=== PATIENT | female | born 1990 | race African-American/Black ===

== ENCOUNTER 2019-12-12 04:47 | Inpatient (IN) | payer MEDICAID, OTHER, SELFPAY ==
[2019-12-12] MEDS ORDERED: METHYLERGONOVINE 0.2MG/ML AMP IM PRN ×2 (06:26→10:07)
[2019-12-12] MEDS ORDERED: CARBOPROST TROME 250 MCG/ML IM PRN ×2 (06:26→10:07)
[2019-12-12] MEDS ORDERED: BUTORPHANOL 1 MG/ML INJ ONE (06:26)
[2019-12-12] MEDS ORDERED: BUTORPHANOL 1 MG/ML INJ IV PRN (06:26)
[2019-12-12] MEDS ORDERED: PROMETHAZINE INJ 25 MG/ML AMP ONE (06:26)
[2019-12-12] MEDS ORDERED: PROMETHAZINE INJ 25 MG/ML AMP IV PRN (06:26)
[2019-12-12] MEDS ORDERED: Ringers Lactate 1,000 ML IV PRN (06:26)
[2019-12-12] MEDS ORDERED: METHYLERGONOVINE 0.2MG/ML AMP IM ONE (06:27)
[2019-12-12] MEDS ORDERED: OXYTOCIN/LR 20 UNIT/1,000 ML BAG IV ONE (06:27)
[2019-12-12] MEDS ORDERED: Ringers Lactate 1,000 ML IV SCH (07:00)
[2019-12-12] MEDS ORDERED: OXYTOCIN/LR 20 UNIT/1,000 ML BAG IV SCH ×2 (07:00→11:00)
[2019-12-12 07:02] LABS: Absolute Lymphocytes (CBC) 1.4 K/uL (0.7-4.9); Basophils % 0.2 % (0-1.3); Hematocrit 33.3 % (36.0-45.0); Lymphocytes % 14.9 % (15.3-44.8); MPV 10.8 fL (7.6-11.3); RBC Red Blood Cell Count 4.01 M/uL (3.86-4.86)
[2019-12-12] MEDS ORDERED: ROPIVACAINE HCL 100 ML IV PRN (07:08)
[2019-12-12] MEDS ORDERED: FENTANYL CITR 100 MCG/2 ML IV ONE (07:08)
[2019-12-12] MEDS ORDERED: ROPIVACAINE HCL 0.2% 20ML AMP IV ONE (08:00)
--- NOTE | 2019-12-12 08:56 | PREOPHP ---
Date of Admission: 12/12/2019 History Of Present Illness: Ms. Nation is a 29-year-old , 4, para 3003, followed through by a physician in [place]. She presents to Labor and Delivery complaining of contractions, noted to be 4 cm dilated initially with bulging membranes, over the next hour progressed to 6 cm. She is admitted for labor and delivery. Past Medical History: Includes 4 prior vaginal deliveries without complications. No other significant hospitalizations, accidents, illnesses, injuries. Medications: She is on no medications other than vitamins. Allergies: NO KNOWN ALLERGIES. Family History: Noncontributory. Review of Systems: She reports no recent cough, cold, fever, or chills. No recent nausea or vomiting. No breast knots or lumps. No bowel or bladder issues. Physical Examination: General: Reveals a black female in mild discomfort. Neck: Supple without adenopathy or thyromegaly. Lungs: Clear. Cardiac: Regular rate and rhythm without murmurs. Breasts: Not examined. Abdomen: Estimated weight of approximately 7+ pounds. Pelvic: Cervix noted to be 6+ cm dilated, vertex presentation. Extremities: No cyanosis, clubbing, or edema. Impression: Term , active labor. Plan: The patient will be admitted for delivery. YEIMI/TASHIA Voice ID: [id number] [email or web address]
[2019-12-12] MEDS ORDERED: LIDOCAINE 1% 20 ML MDV ONE (09:18)
[2019-12-12 09:30] LABS: Urine Appearance TURBID; Urine Bilirubin NEGATIVE (NEG); Urine Blood 2+ (NEG); Urine Color YELLOW; Urine Glucose NEGATIVE (NEG); Urine Protein 2+ (NEG); Urine Urobilinogen 0.2 mg/dL (0.2-1.0); Urine pH 6.5 (5.0-7.0)
[2019-12-12 10:02] LABS: Urine Bacteria >50 /HPF (<20); Urine Culture Reflex Order REFLEXED
--- NOTE | 2019-12-12 10:06 | P.BOP ---
Preoperative diagnosis: Term IUP, active labor Postoperative diagnosis: SCVD viable female Primary procedure: SCVD Secondary procedure: Repair perineal laceration Anesthesia: epidural Complications: None Transferred to: Other (272) Condition: Good
[2019-12-12] MEDS ORDERED: ONDANSETRON 4 MG (ODT) TAB PO PRN (10:07)
[2019-12-12] MEDS ORDERED: ACETAMINOPHEN 500 MG TAB PO PRN (10:07)
[2019-12-12] MEDS ORDERED: METHYLERGONOVINE 0.2 MG TAB PO PRN (10:07)
[2019-12-12] MEDS: IBUPROFEN 600 MG TAB PO PRN (16:10)
[2019-12-12 21:51] VITALS: BMI 39.3
[2019-12-13 08:29] VITALS: BP 121/53; TEMP 97.3
[2019-12-13] MEDS ORDERED: MEASLES,MUMPS,RUBELLA VAC 0.5ML SQVAC ONE (08:39)
[2019-12-13] MEDS ORDERED: NITROFURAN MACRO 100 MG CAP PO ONE (09:08)
[2019-12-13] MEDS ORDERED: Tdap (Diph,Pertuss(Acell),Tet Vac) 0.5 ML SYR IMVAC ONE (09:56)
--- NOTE | 2019-12-13 10:39 | DN ---
Surgeon: Augie Wright MD Ms. Nation is a 29-year-old black female 4, para 3-0-0-3, followed by a physician in [place], presents to Labor and Delivery at 39 weeks' gestation with complaints of contractions. She had a first stage of labor of 7 hours and 15 minutes, second stage of labor at 31 minutes. She deliv ered by spontaneous controlled vaginal delivery a 6-pound 6-ounce female infant, was 9 and 9. After delayed cord clamping, the was placed on mother's upper abdomen. Cord blood was obtaine d. Placenta was spontaneously expelled and appeared to be intact. Intrauterine examination revealed no retained placental fragment. She delivered with epidural anesthesia after receiving 1 mg Stadol IV and 1 dose of Phenergan 12.5 mg IV for analgesia. Quantitative blood loss was 70 mL. She suffere d a midline second-degree perineal laceration at the time of delivery, which was repaired utilizing 3 -0 Vicryl suture in the usual fashion. The patient tolerated all procedures well. YEIMI/TASHIA Voice ID: [id number] Report ID: [id number]
[2019-12-13] MEDS: IBUPROFEN 600 MG TAB PO PRN (10:40)
--- NOTE | 2019-12-13 19:23 | DS ---
Date of Discharge: 12/13/2019 Final Hospital Discharge Diagnosis: 38 plus week delivered. Complications: None. Procedures: Artificial rupture of membranes, placement of epidural catheter, spontaneous controlled vaginal delivery of a viable female infant, repair of second-degree perineal laceration. Hospital Course: The patient is a 29-year-old female, 4, para 3-0-0-3, foll owed by a physician in [place], who presents to our labor and delivery unit in labor. She had an une ventful labor and delivery. First stage of labor approximately 7 hours and 15 minutes, second stage of labor 31 minutes. She delivered by spontaneous controlled vaginal delivery of a 6-pound 6-ounce f emale , 9 and 9 with epidural anesthesia. She was dismissed on the first day, ambulatory, on a select diet with routine post vaginal delivery activity restrictions. Lab work inc luded an admission hemoglobin and hematocrit of 10.8 and 33.3, dismissal of 31.5 with likely iron def iciency anemia. She had a urinalysis, which was suspicious for possible bladder infection, but she h ad no symptoms. RPR is pending. She is O-positive blood type. Preliminary urine count showed possi ble bladder infection. She will be dismissed with antibiotic for potential coverage to continue taki ng her vitamins with the usual post vaginal delivery activity restrictions. YEIMI/TASHIA Voice ID: [id number] Report ID: [id number]
[2019-12-13 22:42] LABS: RPR (Rapid Plasma Reagin) NON-REACT (NON-REACT)
[2019-12-15 19:00] LABS: HBsAG Nonreactive (Nonreactive)
== END 2019-12-13 13:30 | disposition home or self-care (01) | DRG 805 ==
LOC: L&D 04:47 → 2ND-WC 06:08
PROVIDERS: ADMIT Specialist; ATTEND Specialist
PROC: 10E0XZZ Delivery of Products of Conception, External Approach (ICD-10-PCS; principal; 2019-12-12)
PROC: 0KQM0ZZ Repair Perineum Muscle, Open Approach (ICD-10-PCS; 2019-12-12)
PROC: 10907ZC Drainage of Amniotic Fluid, Therapeutic from Products of Conception, Via Natural or Artificial Opening (ICD-10-PCS; 2019-12-12)
DX: O70.1 Second degree perineal laceration during delivery (principal); O75.3 Other infection during labor; Z37.0 Single live birth; Z3A.39 39 weeks gestation of pregnancy; Z23 Encounter for immunization; O99.02 Anemia complicating childbirth; D50.9 Iron deficiency anemia, unspecified; N30.90 Cystitis, unspecified without hematuria
CPT/HCPCS: 36415; 81001; 85014; 85025; 86592; 86901; 87077; 87086; 87088; 87186; 87340; 90471; 90707; 90715; J0595; J2210; J2550; J2590; J2795; J3010; J7120

== ENCOUNTER 2020-07-03 18:34 | Inpatient (IN) | payer MEDICAID ==
--- OUTSIDE RECORDS SUMMARY | 2020-07-03 18:36 | XMS REPORT | Continuity of Care Document ---
:1990 Author Organization [facility] t Address [address] [place] [address] Care Team Providers Name Role Phone Unavailable Unavailable Unavailable Problems This patient has no known problems. Allergies, Adverse Reactions, Alerts This patient has no known allergies or adverse reactions. Medications This patient has no known medications. Procedures This patient has no known procedures. Encounters Start End Encounter Admission Attending Care Care Encounter Source Date/Time Date/Time Type Type Clinicians Facility Department ID 2018-11-28 2018-11-28 Emergency E [id number] 17:24:00 17:24:00 Results This patient has no known results.
[2020-07-03 19:34] LABS: Absolute Lymphocytes (CBC) 1.8 K/uL (0.7-4.9); Basophils % 0.5 % (0-1.3); Hematocrit 36.5 % (36.0-45.0); Lymphocytes % 10.9 % (15.3-44.8); MPV 11.1 fL (7.6-11.3); RBC Red Blood Cell Count 4.52 M/uL (3.86-4.86)
[2020-07-03] MEDS ORDERED: ONDANSETRON 4 MG/2 ML VIAL ONE (19:36)
[2020-07-03] MEDS ORDERED: NA CHLORIDE 0.9% 1,000 ML ONE (19:36)
[2020-07-03 19:37] LABS: Urine Bacteria 20-50 /HPF (<20); Urine Mucus 2+ /HPF (NONE SEEN)
[2020-07-03 19:37] LABS: Urine Blood 2+ (NEG); Urine Glucose NEGATIVE (NEG); Urine Protein 3+ (NEG)
[2020-07-03] MEDS ORDERED: MORPHINE 4 MG/ML SYR ONE (19:38)
[2020-07-03 19:50] LABS: Albumin 2.5 g/dL (3.4-5.0); Bilirubin Direct 0.2 mg/dL (0-0.2); Bilirubin Total 0.9 mg/dL (0.2-1.0); Potassium 3.9 mmol/L (3.5-5.1)
[2020-07-03 19:58] LABS: Blood Morphology Comment NOT SEEN (NOT SEEN); Platelet Estimate ADEQ; White Blood Cell Scan OK (OK)
[2020-07-03 19:59] LABS: Anisocytosis 1+; Poikilocytosis 1+
--- NOTE | 2020-07-03 19:59 | RAD REPORT ---
EXAM DESCRIPTION: CTAbdomen Pelvis W Contrast - 07/03/2020 7:51 pm CLINICAL HISTORY: Abdominal pain. FLANK PAIN COMPARISON: No comparisons TECHNIQUE: Biphasic CT imaging of the abdomen and pelvis was performed with 100 ml non-ionic IV cont rast. All CT scans are performed using dose optimization technique as appropriate and may include automated exposure control or mA/KV adjustment according to patient size. FINDINGS: The lung bases are clear. The liver, spleen, pancreas, adrenal glands are within normal limits. The right kidney appears enlarg ed and edematous with mild hydronephrosis. This is suspicious for pyelonephritis. Early similar findi ngs are present on the as well. No bowel obstruction, free air, free fluid or abscess. The appendix is normal. No evidence of signi ficant lymphadenopathy. No suspicious bony findings. IMPRESSION: Developing bilateral pyelonephritis suspected, worse on the right. No perinephric absces s is seen.
--- NOTE | 2020-07-03 20:22 | EDPHYS ---
Physician Documentation [facility] Name: Ifeoma Rodriguez Age: 29 yrs Sex: Female : 1990 Arrival Date: 07/03/2020 Time: 18:38 Bed 17 Private MD: ED Physician Brennan Paige HPI: 07/03 19:08 This 29 yrs old Black Female presents to ER via EMS with complaints of Abdominal Pain. pm1 19:08 The patient presents with abdominal pain that is diffuse. Onset: The symptoms/episode pm1 began/occurred 5 day(s) ago. The symptoms do not radiate. Associated signs and symptoms: Pertinent positives: diarrhea, Pertinent negatives: nausea and vomiting, chest pain, fever, shortness of breath. Modifying factors: The symptoms are alleviated by nothing, the symptoms are aggravated by nothing. The patient has not experienced similar symptoms in the past. The patient has experienced a previous episode, similar to prior kidney infection. The patient has not recently seen a physician, and does not have an established primary care provider. 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 - Social history:: Smoking status: Patient denies any tobacco usage or history of. ROS: 19:08 ENT: Negative for injury, pain, and discharge, Neck: Negative for injury, pain, and pm1 swelling, Cardiovascular: Negative for chest pain, palpitations, and edema, Respiratory: Negative for shortness of breath, cough, wheezing, and pleuritic chest pain. 19:08 : Negative for injury, bleeding, discharge, and swelling, MS/Extremity: Negative for injury and deformity, Skin: Negative for injury, rash, and discoloration. 19:08 Neuro: Negative for headache, weakness, numbness, tingling, and seizure. 19:08 Constitutional: Positive for fever, patient did not realize that she had a fever until EMS checked her temperature, Negative for poor PO intake. 19:08 Abdomen/GI: Positive for abdominal pain, diarrhea, Negative for nausea and vomiting. 19:08 Back: Positive for of the right low back. Exam: 19:08 Constitutional: This is a well developed, well nourished patient who is awake, alert, pm1 and in no acute distress. Head/Face: Normocephalic, atraumatic. 19:08 Skin: Warm, dry with normal turgor. Normal color with no rashes, no lesions, and no evidence of cellulitis. MS/ Extremity: Pulses equal, no cyanosis. Neurovascular intact. Full, normal range of motion. 19:08 Cardiovascular: Exam negative for acute changes, Rate: normal, Rhythm: regular, Pulses: no pulse deficits are appreciated. 19:08 Respiratory: Exam negative for acute changes, respiratory distress, shortness of breath. 19:08 Abdomen/GI: Inspection: obese Palpation: abdomen is soft and non-tender, in all quadrants. 19:08 Back: pain, that is mild, of the sacrum and right low back. 19:08 Neuro: Exam negative for acute changes, Orientation: is normal, Mentation: is normal, Motor: is normal, moves all fours. Vital Signs: 18:39 BP 117 / 81; Pulse 98; Resp 18; Temp 103.1(O); Pulse Ox 100% on R/A; Height 5 ft. 4 in. em (162.56 cm); Pain 10/10; 20:00 BP 110 / 80; Pulse 80; Resp 18; Temp 98.5; Pulse Ox 100% on R/A; mg2 21:15 Pulse 87; Resp 18; Temp 98.3; Pulse Ox 98% on R/A; mg2 22:15 BP 108 / 73; Pulse 78; Resp 18; Pulse Ox 97% on R/A; ll2 MDM: 19:09 Patient medically screened. pm1 20:12 Data reviewed: vital signs. Data interpreted: Pulse oximetry: on room air is 100 %. pm1 Interpretation: normal. 20:19 Counseling: I had a detailed discussion with the patient and/or guardian regarding: the pm1 historical points, exam findings, and any diagnostic results supporting the discharge/admit diagnosis, lab results, radiology results, the need for further work-up and treatment in the hospital. 07/03 19:08 Order name: Basic Metabolic Panel; Complete Time: 19:52 pm1 07/03 19:08 Order name: CBC with Diff; Complete Time: 20:07 pm1 07/03 19:08 Order name: Hepatic Function; Complete Time: 19:52 pm1 07/03 19:08 Order name: Lipase; Complete Time: 19:52 pm1 07/03 19:08 Order name: Urine Microscopic Only; Complete Time: 19:45 pm1 07/03 19:31 Order name: Urine Dipstick--Ancillary (enter results); Complete Time: 19:45 mw2 07/03 19:08 Order name: CT Abd/Pelvis - IV Contrast Only; Complete Time: 20:07 pm1 07/03 19:31 Order name: Urine --Ancillary (enter results); Complete Time: 19:45 mw2 07/03 19:37 Order name: Urine Culture EDMS 07/03 19:58 Order name: CBC Smear Scan; Complete Time: 20:07 EDMS 07/03 20:19 Order name: Blood Culture Adult (2) pm1 07/03 23:05 Order name: SARS-COV-2 RT PCR; Complete Time: 23:12 EDMS 07/03 19:08 Order name: IV Saline Lock; Complete Time: 19:09 pm1 07/03 19:08 Order name: Labs collected and sent; Complete Time: 19:09 pm1 07/03 19:08 Order name: Urine Dipstick-Ancillary (obtain specimen); Complete Time: 19:33 pm1 07/03 19:08 Order name: Urine Test (obtain specimen); Complete Time: 19:33 pm1 Administered Medications: 19:33 Drug: NS 0.9% 1000 ml Route: IV; Rate: 1000 ml; Site: right antecubital; mg2 21:17 Follow up: Response: No adverse reaction; IV Status: Completed infusion; IV Intake: mg2 1000ml 19:33 Drug: morphine 4 mg Route: IVP; Site: right antecubital; mg2 21:17 Follow up: Response: No adverse reaction mg2 19:33 Drug: Zofran (Ondansetron) 4 mg Route: IVP; Site: right antecubital; mg2 21:16 Follow up: Response: No adverse reaction mg2 20:45 Drug: LevaQUIN 750 mg Volume: 150 ml; Route: IVPB; Infused Over: 90 mins; Site: right mg2 antecubital; Disposition: 07/04 00:13 Co-signature as Attending Physician, Brennan Paige MD. rn Disposition: 07/03/20 20:22 Hospitalization ordered by Seb Altamirano for Inpatient Admission. Preliminary diagnosis is Acute pyelonephritis. - Bed requested for Telemetry/MedSurg (Inpatient). - Status is Inpatient Admission. ll2 - Condition is Stable. - Problem is new. - Symptoms have improved. Signatures: Dispatcher [employer] EDMN Connor Mistry, RN RN em Brennan Paige MD MD rn Garcia, Cindy, RN RN Robert Epstein, FINANCIAL INTERN FINANCIAL INTERN pm1 Aaron Reyna RN RN [facility] Chloe Magallanes RN RN ll2 Corrections: (The following items were deleted from the chart) 07/03 22:10 21:17 CORONAVIRUS+MR.LAB.BRZ ordered. [facility] 22:24 20:22 Hospitalization Ordered by Savage RODRIGUEZ for Inpatient Admission. Preliminary pm1 diagnosis is Acute pyelonephritis. Bed requested for Telemetry/MedSurg (Inpatient). Status is Inpatient Admission. Condition is Stable. Problem is new. Symptoms have improved. pm1 23:51 22:24 07/03/2020 20:22 Hospitalization Ordered by Seb Altamirano for Inpatient cg Admission. Preliminary diagnosis is Acute pyelonephritis. Bed requested for Telemetry/MedSurg (Inpatient). Status is Inpatient Admission. Condition is Stable. Problem is new. Symptoms have improved. pm1 07/04 00:09 07/03 23:51 07/03/2020 20:22 Hospitalization Ordered by Seb Altamirano for Inpatient ll2 Admission. Preliminary diagnosis is Acute pyelonephritis. Bed requested for Telemetry/MedSurg (Inpatient). Status is Inpatient Admission. Condition is Stable. Problem is new. Symptoms have improved. cg
--- NOTE | 2020-07-03 20:22 | ER ---
Nurse's Notes [facility] Name: Ifeoma Rodriguez Age: 29 yrs Sex: Female : 1990 Arrival Date: 07/03/2020 Time: 18:38 Bed 17 Private MD: Diagnosis: Acute pyelonephritis Presentation: 07/03 18:39 Chief complaint: EMS states: reports ABD pain for 4-5 days, reports fever for 104.3, em gave 1 G of Tylenol LADDERMAN about 20 minutes. Coronavirus screen: Client denies travel out of the [place] in the last 14 days. Ebola Screen: Patient negative for fever greater than or equal to 101.5 degrees Fahrenheit, and additional compatible Ebola Virus Disease symptoms Patient denies exposure to infectious person. Patient denies travel to an Ebola-affected area in the 21 days before illness onset. No symptoms or risks identified at this time. Initial Sepsis Screen: Does the patient meet any 2 criteria? HR > 90 bpm. Does the patient have a suspected source of infection? No. Patient's initial sepsis screen is negative. Risk Assessment: Do you want to hurt yourself or someone else? Patient reports no desire to harm self or others. Onset of symptoms was June 28, 2020. 18:39 Method Of Arrival: EMS: [facility] em 18:39 Acuity: JEREMIAH 3 em NEUROPSYCHOLOGY DIRECTOR: 07/04 00:08 LMP N/A - control method ll2 Historical: - Allergies: 07/03 18:43 PENICILLINS; em - PMHx: 18:43 None; em - PSHx: 18:43 None; em - Immunization history:: Adult Immunizations up to date. - Social history:: Smoking status: Patient denies any tobacco usage or history of. Screenin:54 Abuse screen: Denies threats or abuse. Denies injuries from another. Nutritional ca1 screening: No deficits noted. Tuberculosis screening: No symptoms or risk factors identified. Fall Risk IV access (20 points). Assessment: 18:54 General: Appears in no apparent distress. comfortable, Behavior is calm, cooperative, ca1 appropriate for age, Reports fever for > 3 days, feeling ill for fatigue for. Pain: Complains of pain in lumbar area Pain radiates to suprapubic area, right lower quadrant and left lower quadrant Pain currently is 7 out of 10 on a pain scale. Pain began 4 - 5 days Is intermittent. Neuro: Level of Consciousness is awake, alert, obeys commands, Oriented to person, place, time, situation. Cardiovascular: Heart tones S1 S2 present Capillary refill < 3 seconds Patient's skin is warm and dry. Respiratory: Airway is patent Respiratory effort is even, unlabored, Respiratory pattern is regular, symmetrical, Breath sounds are clear bilaterally. GI: Abdomen is round non-distended, Bowel sounds present X 4 quads. Abd is soft X 4 quads Abdomen is tender to palpation in suprapubic area, right lower quadrant and left lower quadrant. : Reports urgency, urinary frequency. EENT: No signs and/or symptoms were reported regarding the EENT system. Derm: Skin is intact, is healthy with good turgor, Skin is pink, warm \T\ dry. Musculoskeletal: Circulation, motion, and sensation intact. Capillary refill < 3 seconds. 21:00 Reassessment: Patient appears in no apparent distress at this time. Patient and/or mg2 family updated on plan of care and expected duration. Pain level reassessed. Patient is alert, oriented x 3, equal unlabored respirations, skin warm/dry/pink. 22:49 Reassessment: Patient appears in no apparent distress at this time. Patient and/or mg2 family updated on plan of care and expected duration. Pain level reassessed. Patient is alert, oriented x 3, equal unlabored respirations, skin warm/dry/pink. 07/04 00:02 Reassessment: attempted to call report, requested to wait for a call back. ll2 Vital Signs: 07/03 18:39 BP 117 / 81; Pulse 98; Resp 18; Temp 103.1(O); Pulse Ox 100% on R/A; Height 5 ft. 4 in. em (162.56 cm); Pain 10/10; 20:00 BP 110 / 80; Pulse 80; Resp 18; Temp 98.5; Pulse Ox 100% on R/A; mg2 21:15 Pulse 87; Resp 18; Temp 98.3; Pulse Ox 98% on R/A; mg2 22:15 BP 108 / 73; Pulse 78; Resp 18; Pulse Ox 97% on R/A; ll2 ED Course: 18:38 Patient arrived in ED. em 18:43 Triage completed. em 18:43 Arm band placed on. em 18:46 Laureen Wu, VANIA is Primary Nurse. ca1 18:53 Initial lab(s) drawn, by me, held in ED. Inserted saline lock: 20 gauge in right ca1 forearm, using aseptic technique. Blood collected. 18:54 Patient has correct armband on for positive identification. Placed in gown. Bed in low ca1 position. Call light in reach. Side rails up X2. Pulse ox on. NIBP on. Warm blanket given. 19:03 Robert Epstein NP is PHCP. pm1 19:03 Brennan Paige MD is Attending Physician. pm1 19:10 Initial lab(s) drawn, by ED staff, sent to lab. Urine collected: clean catch specimen, jp3 clear, jose colored. 19:10 Patient maintains SpO2 saturation greater than 95% on room air. jp3 19:51 CT Abd/Pelvis - IV Contrast Only In Process Unspecified. EDMS 20:22 Savage Tapia PA is Hospitalizing Provider. pm1 21:16 No provider procedures requiring assistance completed. Patient admitted, IV remains in mg2 place. 22:24 Hospitalizing Provider role handed off by Savage Tapia PA pm1 22:24 Seb Altamirano is Hospitalizing Provider. pm1 Administered Medications: 19:33 Drug: NS 0.9% 1000 ml Route: IV; Rate: 1000 ml; Site: right antecubital; mg2 21:17 Follow up: Response: No adverse reaction; IV Status: Completed infusion; IV Intake: mg2 1000ml 19:33 Drug: morphine 4 mg Route: IVP; Site: right antecubital; mg2 21:17 Follow up: Response: No adverse reaction mg2 19:33 Drug: Zofran (Ondansetron) 4 mg Route: IVP; Site: right antecubital; mg2 21:16 Follow up: Response: No adverse reaction mg2 20:45 Drug: LevaQUIN 750 mg Volume: 150 ml; Route: IVPB; Infused Over: 90 mins; Site: right mg2 antecubital; Intake: 21:17 IV: 1000ml; Total: 1000ml. mg2 Outcome: 20:22 Decision to Hospitalize by Provider. pm1 07/04 00:08 Admitted to Med/surg accompanied by nurse, via stretcher, Report called to VANIA Weeks ll2 Condition: stable Instructed on the need for admit. 00:09 Patient left the ED. ll2 Signatures: Dispatcher [employer] Connor Lazar, RN RN Robert West, LAWN MAINTENANCE WORKER LAWN MAINTENANCE WORKER pm1 Aaron Reyna, RN RN mg2 Russell Monteiro jp3 Laureen Wu RN RN ca1 Chloe Magallanes RN RN ll2
[2020-07-03] MEDS ORDERED: Levofloxacin 750mg IV 750 MG/150 ML BAG IV ONE (20:49)
--- NOTE | 2020-07-03 23:40 | P.HP ---
Certification for Inpatient Patient admitted to: Inpatient With expected LOS: >2 Midnights Patient will require the following post-hospital care: None Practitioner: I am a practitioner with admitting privileges, knowledge of patient current condition, hospital course, and medical plan of care. Services: Services provided to patient in accordance with Admission requirements found in Title 42 Section 412.3 of the Code of Federal Regulations <Jayson Tapia - Last Filed: 07/03/20 23:35> Patient History Date of Service: 07/03/20 Primary Care Provider: No PCP Reason for admission: Acute Pyelonephritis, Hyponatremia History of Present Illness: This is a 29-year-old female who presented to the emergency room with 5 days of lower abdominal and back pain that was progressively increasing in nature. Denies nausea or vomiting but did complain of diarrhea as well. Patient was found to have a temperature of a 103.1 on initial vitals in the emergency room. Patient was worked up in the emergency room for abdominal pain and found on CT with IV contrast to have bilateral pyelonephritis worse on the right side with confirmed bacteria and white blood cell in her urine louann. Patient stated that she is currently doing a little bit better after antibiotics, fluids, pain medicine. Medicine was consulted at that time for admission. Notable labs was a sodium of 129 and a white cell count of 16.8. Lipase was also found to be elevated at a 1000 + and had mild LFT elevation. CT of the abdomen did not show any acute pancreatitis or hepatic findings. Home medications list reviewed: Yes - Past Medical/Surgical History Has patient received pneumonia vaccine in the past: No Diabetic: No Past Medical History: Patient denies medical history Past Surgical History: Patient denies surgical history - Family History Family History: Reviewed- Non-Contributory - Social History Smoking Status: Never smoker Smoking therapy provided: No Alcohol use: No CD- Drugs: No Caffeine use: No Place of Residence: Home <SherlynFranny hardyJayson - Last Filed: 07/03/20 23:35> Date of Service: 07/04/20 - Family History Father -: Hypertension <carolinacesar - Last Filed: 07/04/20 18:18> Allergies Penicillins Adverse Reaction (Verified 07/04/20 01:04) Anaphylaxis Home Medications: NK [No Home Meds] 07/04/20 Review of Systems General: Fever, Malaise Eyes: Unremarkable ENT: Unremarkable Respiratory: Unremarkable Cardiovascular: Unremarkable Gastrointestinal: As per HPI Genitourinary: As per HPI Musculoskeletal: Unremarkable Integumentary: Unremarkable Neurological: Unremarkable Lymphatics: Unremarkable <Franny Tapiashua - Last Filed: 07/03/20 23:35> Physical Examination - Vital Signs Temperature: 103.1 F Blood Pressure: 117/81 Pulse: 98 Respirations: 18 Pulse Ox (%): 100 (Room air) - Physical Exam General: Alert, In no apparent distress, Oriented x3 HEENT: PERRLA, Mucous membr. moist/pink, EOMI Neck: Supple, 2+ carotid pulse no bruit, JVD not distended, No Thyromegaly, No LAD Respiratory: Clear to auscultation bilaterally, Normal air movement Cardiovascular: No edema, Normal pulses, Regular rate/rhythm, Normal S1 S2, No gallops, No rubs, No murmurs Capillary refill: <2 Seconds Gastrointestinal: Normal bowel sounds, Soft and benign, Non-distended, No ascites, No tenderness, No masses, No rebound, No guarding Musculoskeletal: No clubbing, No swelling, No contractures, No erythema, No tenderness, No warmth Integumentary: No rashes, No breakdown, No significant lesion, No tenderness/s welling, No erythema, No warmth, No cyanosis Neurological: Normal speech, Normal strength at 5/5 x4 extr, Normal tone, Sensation intact, Cranial nerves 3-12 intact, Normal affect Lymphatics: No axilla or inguinal lymphadenopathy - Studies Laboratory Data (last 24 hrs) 07/03/20 19:05: WBC 16.8 H, Hgb 12.2, Hct 36.5, Plt Count 193 07/03/20 19:05: Sodium 129 L, Potassium 3.9, BUN 17, Creatinine 1.27, Glucose 89, Total Bilirubin 0.9, AST 110 H, ALT 90 H, Alkaline Phosphatase 200 H, Lipase 1180 H <UniquecrystalFranny hardyJayson - Last Filed: 07/03/20 23:35> - Studies Laboratory Data (last 24 hrs) 07/03/20 19:05: WBC 16.8 H, Hgb 12.2, Hct 36.5, Plt Count 193 07/03/20 19:05: Sodium 129 L, Potassium 3.9, BUN 17, Creatinine 1.27, Glucose 89, Total Bilirubin 0.9, AST 110 H, ALT 90 H, Alkaline Phosphatase 200 H, Lipase 1180 H <cesar figuerao - Last Filed: 07/04/20 18:18> Assessment and Plan - Problems (Diagnosis) (1) Pyelonephritis Current Visit: Yes Status: Acute (2) Hyponatremia Current Visit: Yes Status: Acute (3) Dehydration Current Visit: Yes Status: Acute - Plan 1. Patient will be treated with IV antibiotics for her acute pyelonephritis 2. Urine cultures obtained and will be sent to the lab for culture and sensitivity 3. Patient will continue to have IV hydration for hyponatremia and dehydration 4. DVT prophylaxis 5. Will recheck labs in the morning and trend her lipase and liver function tests to ensure that they stabilize. Unknown why lipase is elevated at this time but does not appear to have acute pancreatitis. Patient is moderately obese and could have sedentary hepatic steatosis present. 6. Pain medications as needed Patient will remain on an IV antibiotics while in the inpatient setting. Will continue to monitor patient overall but suspect that patient should be able to go home in the next couple of days as long as fevers remain down and white cell count trends down and patient starts to feel better. Discharge Plan: Home Plan to discharge in: 48 Hours - Advance Directives Does patient have a Living Will: No Does patient have a Durable POA for Healthcare: No - Code Status/Comfort Care Code Status Assessed: Yes Code Status: Full Code Critical Care: No Time Spent Managing Pts Care (In Minutes): 70 <Jayson Tapia - Last Filed: 07/03/20 23:35> - Problems (Diagnosis) (1) Pyelonephritis Current Visit: Yes Status: Acute (2) Hyponatremia Current Visit: Yes Status: Acute Physician Review: Patient Assessed, Agree with Above Assessment and Plan Physician Review Additional Text: Acute pyelonephritis. IV antibiotics. Follow urine culture and blood cultures. <cesar figueroa - Last Filed: 07/04/20 18:18>
[2020-07-04 00:30] VITALS: BMI 34.6
[2020-07-04] MEDS ORDERED: ONDANSETRON 4 MG/2 ML VIAL IV PRN (00:43)
[2020-07-04] MEDS: NA CHLORIDE 0.9% 1,000 ML IV SCH ×3 (01:05→20:03)
[2020-07-04] MEDS: ACETAMINOPHEN 325 MG TABLET PO PRN ×2 (04:33→12:59)
[2020-07-04 06:03] LABS: Absolute Lymphocytes (CBC) 1.6 K/uL (0.7-4.9); Basophils % 0.3 % (0-1.3); Hematocrit 33.5 % (36.0-45.0); Lymphocytes % 11.1 % (15.3-44.8); MPV 11.7 fL (7.6-11.3); RBC Red Blood Cell Count 4.04 M/uL (3.86-4.86)
[2020-07-04 06:12] LABS: Potassium 3.5 mmol/L (3.5-5.1)
[2020-07-04] MEDS: Levofloxacin500mg IV 500 MG/100 ML BAG IV SCH (09:35)
[2020-07-04] MEDS: MORPHINE 2 MG/ML SYR IV PRN ×2 (13:08→20:58)
--- NOTE | 2020-07-04 15:06 | P.PN ---
Subjective Date of Service: 07/04/20 Primary Care Provider: No PCP Chief Complaint: Acute Pyelonephritis, Hyponatremia Patient reports generalized weakness. Her voice is under tone. She reports poor appetite. She denies any abdominal pain. Physical Examination - Vital Signs Temperature: 100.8 F Blood Pressure: 107/60 Pulse: 108 Respirations: 18 Pulse Ox (%): 96 - Physical Exam General: Alert, In no apparent distress HEENT: Mucous membr. moist/pink Neck: Supple, JVD not distended Respiratory: Clear to auscultation bilaterally, Normal air movement Cardiovascular: No edema, Regular rate/rhythm, Normal S1 S2 Capillary refill: <2 Seconds Gastrointestinal: Normal bowel sounds, Soft and benign, Non-distended, No tenderness Integumentary: No rashes Neurological: Normal strength at 5/5 x4 extr, Other (Depressed mood) - Studies Laboratory Data (last 24 hrs) 07/03/20 19:05: WBC 16.8 H, Hgb 12.2, Hct 36.5, Plt Count 193 07/03/20 19:05: Sodium 129 L, Potassium 3.9, BUN 17, Creatinine 1.27, Glucose 89, Total Bilirubin 0.9, AST 110 H, ALT 90 H, Alkaline Phosphatase 200 H, Lipase 1180 H Assessment And Plan - Current Problems (Diagnosis) (1) Pyelonephritis Current Visit: Yes Status: Acute (2) Hyponatremia Current Visit: Yes Status: Acute - Plan Continue IV Levaquin Hyponatremia is improving Continue IV NS. Follow urine culture and blood cultures. Diet as tolerated. Monitor CBC and blood chemistry.
[2020-07-04] MEDS: ENOXAPARIN 40 MG/0.4 ML SQ SCH (17:08)
[2020-07-05] MEDS: NA CHLORIDE 0.9% 1,000 ML IV SCH ×5 (02:10→20:10)
[2020-07-05] MEDS: ACETAMINOPHEN 325 MG TABLET PO PRN ×2 (04:19→22:42)
[2020-07-05] MEDS: Levofloxacin500mg IV 500 MG/100 ML BAG IV SCH (09:24)
--- NOTE | 2020-07-05 12:32 | P.PN ---
Subjective Date of Service: 07/05/20 Primary Care Provider: No PCP Chief Complaint: Acute Pyelonephritis, Hyponatremia No major changes from yesterday. She is complaining of bilateral flank pain. She states her appetite is poor. Physical Examination - Vital Signs Temperature: 96.5 F Blood Pressure: 104/64 Pulse: 69 Respirations: 20 Pulse Ox (%): 98 - Physical Exam General: Alert, In no apparent distress HEENT: Mucous membr. moist/pink, Sclerae nonicteric Neck: Supple, JVD not distended Respiratory: Clear to auscultation bilaterally, Normal air movement Cardiovascular: No edema, Regular rate/rhythm, Normal S1 S2 Capillary refill: <2 Seconds Gastrointestinal: Normal bowel sounds, Soft and benign, Non-distended, No tenderness Musculoskeletal: No swelling, No tenderness Integumentary: No rashes, No erythema Neurological: Normal speech, Normal strength at 5/5 x4 extr Assessment And Plan - Current Problems (Diagnosis) (1) Pyelonephritis Current Visit: Yes Status: Acute (2) Hyponatremia Current Visit: Yes Status: Acute - Plan Leukocytosis trending down Urine culture growing Gram negative rods. Follow urine culture organism identification and sensitivity. 1 blood culture bottle growing gram-negative sobeida. Continue IV Levaquin. Repeat blood culture result is pending. Diet as tolerated. Hyponatremia improved Continue IV hydration.
[2020-07-05] MEDS: MORPHINE 2 MG/ML SYR IV PRN (13:56)
[2020-07-05] MEDS: ENOXAPARIN 40 MG/0.4 ML SQ SCH (17:07)
[2020-07-06 04:28] LABS: Absolute Lymphocytes (CBC) 2.4 K/uL (0.7-4.9); Basophils % 0.6 % (0-1.3); Hematocrit 31.9 % (36.0-45.0); Lymphocytes % 23.3 % (15.3-44.8); MPV 10.6 fL (7.6-11.3)
[2020-07-06 04:53] LABS: BUN Blood Urea Nitrogen 6 mg/dL (7-18); Bicarbonate 25 mmol/L (21-32); Glucose Level 86 mg/dL (74-106); Potassium 3.8 mmol/L (3.5-5.1); Sodium Level 140 mmol/L (136-145)
[2020-07-06] MEDS: Levofloxacin500mg IV 500 MG/100 ML BAG IV SCH (08:31)
--- NOTE | 2020-07-06 12:10 | P.PN ---
Subjective Date of Service: 07/06/20 Primary Care Provider: No PCP Chief Complaint: Acute Pyelonephritis, Hyponatremia Patient states he feels better today. Urine culture and blood cultures grew E. coli. Repeat blood culture shows no growth. Oral intake has improved. Physical Examination - Vital Signs Temperature: 97.8 F Blood Pressure: 108/64 Pulse: 73 Respirations: 20 Pulse Ox (%): 98 - Physical Exam General: Alert, In no apparent distress Respiratory: Clear to auscultation bilaterally, Normal air movement Cardiovascular: No edema, Regular rate/rhythm, Normal S1 S2 Gastrointestinal: Normal bowel sounds, Soft and benign, No tenderness Musculoskeletal: No swelling, No tenderness Integumentary: No rashes Neurological: Normal strength at 5/5 x4 extr - Studies Microbiology Data (last 24 hrs): 07/03/20 19:00 Clean Catch Urine [place] Count - Final >100,000 CFU/ML. 07/03/20 19:00 Clean Catch Urine - Final Escherichia Coli Assessment And Plan - Current Problems (Diagnosis) (1) Pyelonephritis Current Visit: Yes Status: Acute (2) Hyponatremia Current Visit: Yes Status: Acute - Plan Leukocytosis resolved Urine culture and blood cultures; E. coli Repeat blood cultures: No growth to date. Continue IV Levaquin. Diet as tolerated. Hyponatremia resolved. Reduce IV fluid rate.
[2020-07-06] MEDS: NA CHLORIDE 0.9% 1,000 ML IV SCH ×2 (12:14→22:49)
[2020-07-06] MEDS: ENOXAPARIN 40 MG/0.4 ML SQ SCH (16:13)
[2020-07-07 00:25] VITALS: O2SAT 98
[2020-07-07 06:26] VITALS: TEMP 97.4
[2020-07-07] MEDS: Levofloxacin500mg IV 500 MG/100 ML BAG IV SCH (07:55)
--- NOTE | 2020-07-07 08:48 | P.DS ---
Admission Date: 07/03/20 Discharge Date: 07/07/20 Primary Care Provider: [place] PCP Disposition: ROUTINE DISCHARGE Discharge Condition: FAIR Reason for Admission: Acute Pyelonephritis, Hyponatremia Consultations: None - Problems (1) Pyelonephritis Status: Acute (2) Hyponatremia Status: Acute Brief History of Present Illness: 29-year-old woman presented to the emergency department with a complaint of 5 day history of abdominal pain and bilateral flank pain. Her urinalysis in the emergency department suggested the presence of UTI. Her lipase level was also elevated. CT abdomen and pelvis demonstrated findings suggestive of bilateral pyelonephritis. Patient was admitted for further management. Hospital Course: Patient admitted to the medical floor and treated for UTI with IV Levaquin. Urine culture and blood cultures grew pansensitive E. coli. She received 4 days of IV Levaquin. Repeat blood culture have yielded no growth to date. Lipase level also trended down. Patient clinically improved with treatment. She has no symptoms today, she is afebrile. Hyponatremia and leukocytosis resolved. She is deemed clinically stable for discharge. She is discharged with 10 more days of Levaquin complete 2 weeks of treatment. Vital Signs/Physical Exam: Temp Pulse Resp BP Pulse Ox 97.4 F 70 18 109/71 96 07/07/20 04:00 07/07/20 04:00 07/07/20 04:00 07/07/20 04:00 07/07/20 04:00 General: Alert, In no apparent distress HEENT: Mucous membr. moist/pink Respiratory: Clear to auscultation bilaterally, Normal air movement Cardiovascular: No edema, Regular rate/rhythm, Normal S1 S2 Gastrointestinal: Normal bowel sounds, Soft and benign, Non-distended, No tenderness Musculoskeletal: No swelling Integumentary: No rashes Neurological: Normal strength at 5/5 x4 extr Laboratory Data at Discharge: WBC 10.4 K/uL (4.3-10.9) D 07/06/20 03:47 Hgb 10.7 g/dL (12.0-15.0) L 07/06/20 03:47 Hct 31.9 % (36.0-45.0) L 07/06/20 03:47 Plt Count 243 K/uL (152-406) D 07/06/20 03:47 Sodium 140 mmol/L (136-145) 07/06/20 03:47 Potassium 3.8 mmol/L (3.5-5.1) 07/06/20 03:47 BUN 6 mg/dL (7-18) L 07/06/20 03:47 Creatinine 0.79 mg/dL (0.55-1.3) 07/06/20 03:47 Glucose 86 mg/dL (74-106) 07/06/20 03:47 Total Bilirubin 0.9 mg/dL (0.2-1.0) 07/03/20 19:05 AST 110 U/L (15-37) H 07/03/20 19:05 ALT 90 U/L (12-78) H 07/03/20 19:05 Alkaline Phosphatase 200 U/L (45-117) H 07/03/20 19:05 Lipase 466 U/L (73-393) H 07/04/20 01:14 Home Medications: Levofloxacin [Levaquin] 500 mg PO DAILY #10 tablet 07/07/20 New Medications: Levofloxacin [Levaquin] 500 mg PO DAILY #10 tablet Followup: NONE,NONE [Primary Care Provider] - 1-2 Weeks Time spent managing pt's care (in minutes): 37
[2020-07-07 09:53] VITALS: BP 135/58
== END 2020-07-07 11:48 | disposition home or self-care (01) | DRG 872 ==
LOC: ER 18:34 → ERHOLD 23:03 → 2ND 07-04 00:01
PROVIDERS: ADMIT Internal Medicine; ATTEND Internal Medicine
DX: A41.51 Sepsis due to Escherichia coli [E. coli] (principal); N10 Acute pyelonephritis; E87.1 Hypo-osmolality and hyponatremia; E86.0 Dehydration; E66.9 Obesity, unspecified; Z68.34 Body mass index [BMI] 34.0-34.9, adult; Z88.0 Allergy status to penicillin; Z20.828 Contact with and (suspected) exposure to other viral communicable diseases
CPT/HCPCS: 36415; 74177; 80048; 80076; 81003; 81015; 81025; 82565; 83690; 85025; 87040; 87077; 87086; 87088; 87186; 87205; 96361; 96374; 96375; 99285; J1650; J2270; J2405; J7030; Q9967; U0003

== ENCOUNTER 2020-11-12 14:37 | Emergency (ER) | payer SELFPAY ==
--- OUTSIDE RECORDS SUMMARY | 2020-11-12 14:40 | XMS REPORT | Continuity of Care Document ---
:1990 Author Organization [facility] t Address [address] [place] [address] Care Team Providers Name Role Phone Unavailable [...] Department ID 2018-11-28 2018-11-28 Emergency E [id number] [facility] 17:24:00 17:24:00 Results This patient has no known results.
--- NOTE | 2020-11-12 20:53 | ER ---
Nurse's Notes [facility] Name: Ifeoma Rodriguez Age: 30 yrs Sex: Female : 1990 Arrival Date: 11/12/2020 Time: 14:40 Bed Waiting Private MD: Diagnosis: Presentation: 11/12 15:19 Chief complaint: Patient states: Nasal congestion and sore throat for 2 days. Cough got ll1 better, no fever. Wants to be checked for covid. Coronavirus screen: Client denies travel out of the [place] in the last 14 days. congestion, cough unrelated to allergies, headache, muscle pain, sore throat, Client presents with at least one sign or symptom that may indicate coronavirus-19. Standard/surgical mask placed on the client. Ebola Screen: Patient denies travel to an Ebola-affected area in the 21 days before illness onset. Resp Distress? No respiratory distress is noted at this time. Initial Sepsis Screen: Does the patient meet any 2 criteria? No. Patient's initial sepsis screen is negative. Does the patient have a suspected source of infection? Yes: Other: sore throat. Risk Assessment: Do you want to hurt yourself or someone else? Patient reports no desire to harm self or others. Onset of symptoms was November 11, 2020. 15:19 Method Of Arrival: Ambulatory ll1 15:19 Acuity: JEREMIAH 4 ll1 Historical: - Allergies: 15:19 PENICILLINS; ll1 - PMHx: 15:19 epilepsy; ll1 - PSHx: 15:19 None; ll1 - Immunization history:: Flu vaccine is not up to date. - Social history:: Smoking status: Patient denies any tobacco usage or history of. Vital Signs: 15:19 Pulse 85; Resp 17; Temp 97.3; Pulse Ox 99% ; Height 5 ft. 4 in. (162.56 cm); Pain 4/10; ll1 15:19 BP 107 / 72; ll1 ED Course: 14:40 Patient arrived in ED. ds1 15:18 Arm band placed on. ll1 15:22 Triage completed. ll1 20:53 Patient's name was called from ER lobby. No response. Unable to locate patient. Will bb disposition as left without being seen by a provider. Administered Medications: No medications were administered Outcome: 20:53 Patient left the ED. bb Signatures: Tonya Alatorre ds1 Ivonne Morales RN RN bb Kimi Clark RN RN ll1
[2020-11-12 21:37] VITALS: BP 107/72; TEMP 97.3; O2SAT 99
== END 2020-11-12 20:53 | disposition left against medical advice (07) ==
LOC: ER 14:37
DX: Z53.21 Procedure and treatment not carried out due to patient leaving prior to being seen by health care provider (principal)
CPT/HCPCS: 99281

== ENCOUNTER 2020-11-13 08:40 | Emergency (ER) | payer MEDICAID ==
--- OUTSIDE RECORDS SUMMARY | 2020-11-13 08:42 | XMS REPORT | Continuity of Care Document ---
:1990 Author Organization [facility] t Address [address] [place] [address] Care Team Providers Name Role Phone Unavailable [...]
--- NOTE | 2020-11-13 09:22 | EDPHYS ---
Physician Documentation [facility] Name: Ifeoma Rodriguez Age: 30 yrs Sex: Female : 1990 Arrival Date: 11/13/2020 Time: 08:43 Bed 14 Private MD: REBECA Physician Bronson Hernandes HPI: 11/13 09:12 This 30 yrs old Black Female presents to ER via Ambulatory with complaints of r/o covid.jessa 09:12 The patient complains of pain to the top of head, forehead, left frontal area and right jessa frontal area. The patient describes the headache as aching. Onset: The symptoms/episode began/occurred 2 day(s) ago. Associated signs and symptoms: Pertinent positives: malaise, weakness. Severity of symptoms: At its worst the pain was mild, in the emergency department the pain is unchanged. Headache History: Denies prior headaches. The patient or guardian reports cough, that is intermittent, described as mild, difficulty breathing, flu symptoms, arthralgias, myalgias. Onset: The symptoms/episode began/occurred 2 day(s) ago. Severity of symptoms: At their worst the symptoms were mild, in the emergency department the symptoms are unchanged. Modifying factors: The symptoms are alleviated by cool environment, the symptoms are aggravated by exertion. Associated signs and symptoms: Pertinent positives: chest pain, with cough. Historical: - Allergies: 08:45 PENICILLINS; aa5 - PMHx: 08:45 epilepsy; aa5 - PSHx: 08:45 None; aa5 - Immunization history:: Flu vaccine is not up to date. - Social history:: Smoking status: Patient denies any tobacco usage or history of. - Family history:: not pertinent. ROS: 09:12 Constitutional: Negative for fever, chills, and weight loss, Eyes: Negative for injury, jessa pain, redness, and discharge, ENT: Negative for injury, pain, and discharge, Neck: Negative for injury, pain, and swelling, Respiratory: Negative for shortness of breath, cough, wheezing, and pleuritic chest pain, Abdomen/GI: Negative for abdominal pain, nausea, vomiting, diarrhea, and constipation, Back: Negative for injury and pain, : Negative for injury, bleeding, discharge, and swelling, MS/Extremity: Negative for injury and deformity, Skin: Negative for injury, rash, and discoloration, Neuro: Negative for headache, weakness, numbness, tingling, and seizure, Psych: Negative for depression, anxiety, suicide ideation, homicidal ideation, and hallucinations, Allergy/Immunology: Negative for hives, rash, and allergies, Endocrine: Negative for neck swelling, polydipsia, polyuria, polyphagia, and marked weight changes, Hematologic/Lymphatic: Negative for swollen nodes, abnormal bleeding, and unusual bruising. 09:12 Cardiovascular: Positive for chest pain, with cough. Exam: 09:12 Constitutional: This is a well developed, well nourished patient who is awake, alert, jessa and in no acute distress. Head/Face: Normocephalic, atraumatic. Eyes: Pupils equal round and reactive to light, extra-ocular motions intact. Lids and lashes normal. Conjunctiva and sclera are non-icteric and not injected. Cornea within normal limits. Periorbital areas with no swelling, redness, or edema. ENT: Nares patent. No nasal discharge, no septal abnormalities noted. Tympanic membranes are normal and external auditory canals are clear. Oropharynx with no redness, swelling, or masses, exudates, or evidence of obstruction, uvula midline. Mucous membranes moist. Neck: Trachea midline, no thyromegaly or masses palpated, and no cervical lymphadenopathy. Supple, full range of motion without nuchal rigidity, or vertebral point tenderness. No Meningismus. Chest/axilla: Normal chest wall appearance and motion. Nontender with no deformity. No lesions are appreciated. Cardiovascular: Regular rate and rhythm with a normal S1 and S2. No gallops, murmurs, or rubs. Normal PMI, no JVD. No pulse deficits. Abdomen/GI: Soft, non-tender, with normal bowel sounds. No distension or tympany. No guarding or rebound. No evidence of tenderness throughout. Back: No spinal tenderness. No costovertebral tenderness. Full range of motion. Female : Normal external genitalia. Skin: Warm, dry with normal turgor. Normal color with no rashes, no lesions, and no evidence of cellulitis. MS/ Extremity: Pulses equal, no cyanosis. Neurovascular intact. Full, normal range of motion. Neuro: Awake and alert, GCS 15, oriented to person, place, time, and situation. Cranial nerves II-XII grossly intact. Motor strength 5/5 in all extremities. Sensory grossly intact. Cerebellar exam normal. Normal gait. 09:12 Respiratory: the patient does not display signs of respiratory distress, Respirations: normal, Breath sounds: are clear throughout, no bronchial sounds, no decreased breath sounds, no rales, rhonchi, no stridor, no wheezing, no acute changes, Respiratory rate: 17 Vital Signs: 08:52 BP 96 / 70; Pulse 87; Resp 17; Temp 98.8; Pulse Ox 98% ; Height 5 ft. 2 in. (157.48 ll1 cm); Pain 8/10; 11:05 BP 105 / 83; Pulse 79; Resp 18; Pulse Ox 97% ; tr6 [place] Coma Score: 09:15 Eye Response: spontaneous(4). Verbal Response: oriented(5). Motor Response: obeys jessa commands(6). Total: 15. MDM: 08:46 Patient medically screened. jessa 09:15 Differential diagnosis: migraine, sinusitis, tension headache, vasomotor headache. jessa Differential Diagnosis: Bronchitis Influenza Upper Respiratory Infection Sinusitis Pharyngitis Otitis Media. Data reviewed: vital signs, nurses notes. Data interpreted: monitoring engineer: rate is 87 beats/min, rhythm is regular, Pulse oximetry: on room air is 98 %. Counseling: I had a detailed discussion with the patient and/or guardian regarding: the historical points, exam findings, and any diagnostic results supporting the discharge/admit diagnosis, lab results, the need for outpatient follow up. Administered Medications: 09:29 Drug: Aspirin 162 mg Route: PO; tr6 09:46 Follow up: Response: No adverse reaction tr6 09:29 Drug: Decadron (dexamethasone) 4 mg Route: PO; tr6 09:45 Follow up: Response: No adverse reaction tr6 09:30 Drug: Zithromax (azithromycin) 500 mg Route: PO; tr6 09:46 Follow up: Response: No adverse reaction tr6 Disposition: 11/13/20 09:22 Discharged to Home. Impression: Headache. - Condition is Stable. - Discharge Instructions: General Headache Without Cause, Upper Respiratory Infection, Adult, Aspirin and Your Heart, General Headache Without Cause, [id number], COVID-19. - Prescriptions for dexamethasone 2 mg Oral tablet - take 1 tablet by ORAL route 2 times per day; 10 tablet. Pepcid 20 mg Oral Tablet - take 1 tablet by ORAL route every 12 hours for 10 days; 20 tablet. Albuterol Sulfate 90 mcg/actuation Inhalation - inhale 2 puff by INHALATION route every 4-6 hours; 1 Inhaler. Zithromax 500 mg Oral Tablet - take 1 tablet by ORAL route once daily for 5 days; 5 tablet. - Medication Reconciliation Form, Thank You Letter, Antibiotic Education, Prescription Opioid Use form. - Follow up: Private Physician; When: 2 - 3 days; Reason: Recheck today's complaints, Re-evaluation by your physician. - Problem is new. - Symptoms have improved. Signatures: Dispatcher [employer] [facility] Bronson Hernandes MD MD cha Calderon, Audri, RN RN aa5 Kimi Clark RN RN ll1 Dorota Toussaint RN RN tr6 Corrections: (The following items were deleted from the chart) 10:06 08:49 CORONAVIRUS+MR.LAB.BRZ ordered. [facility] 11:08 09:22 11/13/2020 09:22 Discharged to Home. Impression: Headache. Condition is Stable. tr6 Forms are Medication Reconciliation Form, Thank You Letter, Antibiotic Education, Prescription Opioid Use. Follow up: Private Physician; When: 2 - 3 days; Reason: Recheck today's complaints, Re-evaluation by your physician. Problem is new. Symptoms have improved. jessa
--- NOTE | 2020-11-13 09:22 | ER ---
Nurse's Notes [facility] Name: Ifeoma Rodriguez Age: 30 yrs Sex: Female : 1990 Arrival Date: 11/13/2020 Time: 08:43 Bed 14 Private MD: Diagnosis: Headache Presentation: 11/13 08:52 Chief complaint: Patient states: Cough, stuffy nose, sore throat since Friday. Weak, ll1 fatigue, and chest pain with cough started today. Came here yesterday for the same, but the wait was too long. Coronavirus screen: Client denies travel out of the [place] in the last 14 days. cough unrelated to allergies, fatigue, runny nose, sore throat, Client presents with at least one sign or symptom that may indicate coronavirus-19. Standard/surgical mask placed on the client. Ebola Screen: Patient denies travel to an Ebola-affected area in the 21 days before illness onset. Initial Sepsis Screen: Does the patient meet any 2 criteria? No. Patient's initial sepsis screen is negative. Does the patient have a suspected source of infection? Yes: Productive cough/pneumonia. Risk Assessment: Do you want to hurt yourself or someone else? Patient reports no desire to harm self or others. Onset of symptoms was November 12, 2020. 08:52 Method Of Arrival: Ambulatory ll1 08:52 Acuity: JEREMIAH 3 ll1 Historical: - Allergies: 08:45 PENICILLINS; aa5 - PMHx: 08:45 epilepsy; aa5 - PSHx: 08:45 None; aa5 - Immunization history:: Flu vaccine is not up to date. - Social history:: Smoking status: Patient denies any tobacco usage or history of. - Family history:: not pertinent. Assessment: 11:06 General: Appears in no apparent distress. Behavior is calm, cooperative, appropriate tr6 for age. Pain: Denies pain. Neuro: No deficits noted. Cardiovascular: No deficits noted. Respiratory: No deficits noted. Reports cough that is non-productive. GI: No deficits noted. : No deficits noted. EENT: Reports pt reports cough and sore throat. Derm: No deficits noted. Musculoskeletal: No deficits noted. 11:07 Reassessment: discharge instructions reviewed with pt. pt to f/u on COVID results. pt tr6 verbalized understanding. Vital Signs: 08:52 BP 96 / 70; Pulse 87; Resp 17; Temp 98.8; Pulse Ox 98% ; Height 5 ft. 2 in. (157.48 ll1 cm); Pain 8/10; 11:05 BP 105 / 83; Pulse 79; Resp 18; Pulse Ox 97% ; tr6 [place] Coma Score: 09:15 Eye Response: spontaneous(4). Verbal Response: oriented(5). Motor Response: obeys jessa commands(6). Total: 15. ED Course: 08:43 Patient arrived in ED. as 08:44 Arm band placed on. aa5 08:46 Bronson Hernandes MD is Attending Physician. [facility] 08:54 Triage completed. ll1 08:54 Patient placed in an exam room, on a stretcher. ll1 11:07 No provider procedures requiring assistance completed. Patient did not have IV access tr6 during this emergency room visit. Administered Medications: 09:29 Drug: Aspirin 162 mg Route: PO; tr6 09:46 Follow up: Response: No adverse reaction tr6 09:29 Drug: Decadron (dexamethasone) 4 mg Route: PO; tr6 09:45 Follow up: Response: No adverse reaction tr6 09:30 Drug: Zithromax (azithromycin) 500 mg Route: PO; tr6 09:46 Follow up: Response: No adverse reaction tr6 Outcome: 09:22 Discharge ordered by . [facility] 11:07 Discharged to home ambulatory. tr6 11:07 Condition: good 11:07 Discharge instructions given to patient. 11:08 Patient left the ED. tr6 Signatures: Bronson Hernandes MD MD cha Martinez, Amelia as Calderon, Audri, RN RN aa5 Kimi Clark RN RN 1 Dorota Toussaint, VANIA RN tr6 Corrections: (The following items were deleted from the chart) 10:06 09:29 CORONAVIRUS+ drawn and sent. tr6 EDMS
[2020-11-13] MEDS ORDERED: ASPIRIN EC 81 MG TAB PO ONE (09:45)
[2020-11-13] MEDS ORDERED: AZITHROMYCIN 250 MG TAB ONE (09:46)
[2020-11-13] MEDS ORDERED: dexAMETHasone 4 MG TAB ONE (09:46)
[2020-11-13 11:12] VITALS: TEMP 98.8
[2020-11-13 11:13] VITALS: BP 105/83; O2SAT 97
== END 2020-11-13 11:08 | disposition home or self-care (01) ==
LOC: ER 08:40
DX: U07.1 COVID-19 (principal); Z88.0 Allergy status to penicillin
CPT/HCPCS: U0003; J8540; 99283